=== PATIENT | male | born 1970 | race Caucasian/White ===

== ENCOUNTER 2017-05-10 16:28 | Observation (INO) ==
[2017-05-10 18:15] LABS: Basophils # 0.1 K/mcL (0.0-0.2); Basophils % 0.5 %; Eosinophils # 0.2 K/mcL (0.0-0.6); Eosinophils % 2.3 %; Hematocrit 50.7 % (37.5-50.1); Hemoglobin 17.3 g/dL (12.9-16.9); Immature Granulocytes % 0.2 % (0-4); Lymphocytes # 2.1 K/mcL (0.6-4.6); Mean Corpuscular HGB Conc 34.1 g/dL (31.6-35.5); Mean Corpuscular Hemoglobin 28.7 pg (28.0-33.3); Mean Corpuscular Volume 84.2 fL (83.0-100.0); Mean Platelet Volume 9.3 fL (9.4-12.4); Monocytes # 0.9 K/mcL (0.0-1.3); Neutrophils # 6.3 K/mcL (1.6-8.9); Platelet Count 256 K/mcL (140-400); Red Blood Count 6.02 M/mcL (4.19-5.50); Red Cell Distribution Width 13.4 % (11.5-14.5)
[2017-05-10 18:21] LABS: Bilirubin,Urine Negative (Negative); Blood,Urine Trace (Negative); Clarity,Urine Clear (Clear); Color,Urine Dark Yellow (Yellow); Glucose,Urine (UA) Normal (Normal); Ketones,Urine Negative (Negative); Leukocyte Esterase,Urine Negative (Negative); Nitrite,Urine Negative (Negative); PH,Urine 5.5 pH Units (5.0-8.0); Protein,Urine Negative (Neg-Trace); Specific Gravity,Urine > 1.030 (1.010-1.025); Urobilinogen,Urine Normal (Normal)
[2017-05-10 18:24] LABS: Bacteria,Urine None Seen per hpf (None-Few); Hyaline Casts,Urine None Seen per lpf (None-Few); Squamous Epithelial Cell,Urine Few per lpf (None-Few); WBC,Urine 0-3 per hpf (0-3)
[2017-05-10 19:01] LABS: Alanine Aminotransferase 37 Units/L (7-52); Albumin/Globulin Ratio 1.7 (1.1-2.2); Alkaline Phosphatase 99 Units/L (34-104); Amylase 26 Units/L (29-103); Aspartate Amino Transferase 21 Units/L (13-39); BUN/Creatinine Ratio 13 (6-26); Bilirubin,Direct 0.1 mg/dL (0.0-0.2); Bilirubin,Indirect 0.5 mg/dL (0.0-1.2); Bilirubin,Total 0.6 mg/dL (0.3-1.0); Blood Urea Nitrogen 13 mg/dL (6-20); Calcium 10.1 mg/dL (8.6-10.3); Carbon Dioxide 23 mEq/L (23-29); Chloride 103 mEq/L (98-107); Glucose 117 mg/dL (70-105); Lipase 17 Units/L (11-82); Osmolality,Calculated 281 (280-300); Potassium 4.1 mEq/L (3.5-5.1); Sodium 135 mEq/L (136-145); eGFR For African Americans > 60 (> 60); eGFR For Non-African Americans > 60 (> 60)
[2017-05-10] MEDS ORDERED: *HR* HYDROmorphone (PF) 1 MG/ML SYRINGE IVP ONE ×2 (21:42→22:51)
[2017-05-10] MEDS ORDERED: Ondansetron 4 MG/2 ML VIAL IVP ONE (21:42)
--- NOTE | 2017-05-10 22:16 | Emergency Department Note ---
Disposition Clinical Impression: Ileitis, terminal Qualifiers: Digestive disease complication type: unspecified complication Qualified Code(s) : K50.019 - Crohn's disease of small intestine with unspecified complications Disposition: Admitted As Inpatient Referrals: NONE,PCP [Primary Care Provider] - Elijah Simmons MD [Family Provider] - Forms: ED Satisfaction Letter, Work/School Release General Adult HPI - General Chief complaint: ED Abdominal Pain Stated complaint: left lower abd Time Seen by Provider: 05/10/17 21:26 Source: patient, family Mode of arrival: ambulatory Limitations: no limitations Nursing Notes Reviewed: Yes Vital Signs Reviewed: Yes - History of Present Illness HPI Narrative: Patient is an otherwise healthy 46-year-old white male who presents to the emergency room today with 24 hour history of gradually worsening right lower quadrant abdominal pain. Patient has had associated nausea but no vomiting, no bowel changes or diarrhea, no preceding cough or URI symptoms. Patient denies any urinary symptoms or flank pain. No ill contacts. Patient has had no prior abdominal surgeries and no history of any bowel disease or disorders. Pain Scale: 10 - Related Data Allergies Allergy/AdvReac Type Severity Reaction Status Date / Time No Known Allergies Allergy Unverified 05/10/17 16:29 All systems ED: reviewed and negative except as stated. Review of Systems: As Per HPI Past Medical History - Past Medical History Medical history: Reports: no medical history - Social History Smoking Status: Current every day smoker Alcohol use: Reports: none Drug use: Reports: none Physical Exam - General Limitations: no limitations General appearance: alert, in no apparent distress - Head Head exam: atraumatic, normocephalic - Eye Eye exam: Present: normal appearance, PERRL, EOMI - ENT ENT exam: normal exam, normal oropharynx, mucous membranes moist - Neck Neck exam: Present: normal inspection, full ROM - Chest Chest inspection: Present: normal inspection, symmetric chest wall rise - Respiratory Respiratory exam: Present: normal lung sounds bilaterally. Absent: respiratory distress, wheezes - Cardiovascular Cardiovascular exam: Present: regular rate, normal rhythm, normal heart sounds - Abdominal Exam Abdominal exam: Present: soft, tenderness, normal bowel sounds, other (Moderate tenderness to palpation in the right lower quadrant.). Absent: distention, guarding, rebound Abdominal tenderness: Present: RLQ - Male exam: Present: normal inspection - Extremities Exam Extremities exam: Present: normal inspection. Absent: pedal edema, calf tenderness - Back Exam Back exam: Present: normal inspection. Absent: tenderness, CVA tenderness (R), CVA tenderness (L), paraspinal tenderness, vertebral tenderness - Neurological Exam Neurological exam: Present: alert, oriented X3, CN II-XII intact, reflexes normal. Absent: motor sensory deficit - Psychiatric Psychiatric exam: Present: normal affect, normal mood - Skin Skin exam: Present: warm, dry, intact, normal color Course Course Narrative: Patient's labs were obtained in triage and show leukocytosis with left shift otherwise within normal limits. Moderate blood on urinalysis. Patient will be sent for CT for further evaluation of possible appendicitis versus ureterolithiasis. Patient's hemodynamically stable and was provided IV fluids pain meds and antiemetics prior to being moved CT. - Reevaluation(s) Reevaluation #1: Reevaluated following pain medicine administration having no relief of discomfort. Still with water tenderness in the right lower quadrant with guarding. We will re-dose pain medicines. Vital Signs Temperature 97.9 F 05/10/17 17:46 Pulse Rate 108 05/10/17 17:46 Respiratory Rate 18 05/10/17 17:46 Blood Pressure 135/86 05/10/17 17:46 O2 Sat by Pulse Oximetry 97 05/10/17 17:46 Temperature 97.9 F 05/10/17 17:46 Pulse Rate 77 05/10/17 23:17 Respiratory Rate 16 05/10/17 23:17 Blood Pressure 120/63 05/10/17 23:17 O2 Sat by Pulse Oximetry 95 05/10/17 23:17 Oxygen Delivery Oxygen Delivery Room Air Medical Decision Making - [facility] Narrative Medical decision making narrative: I discussed the CT findings and laboratory evaluation as well as the clinical exam with Dr. Benitez his polysilicon preparation worker for surgery. He does not feel that the CT findings indicate any surgical issue or possible early appendicitis and that the patient should be just treated for ileitis. He recommended ongoing IV pain control and antibiotics. Case was discussed with hospitalist, Dr. Smith at 12: 20 AM who accepted the patient for admission and ongoing medical management. - Lab Data Lab results reviewed: Yes I reviewed the patient's lab results. Result diagrams: 05/10/17 18:00 05/10/17 18:00 Lab Results 05/10/17 05/10/1718 Range/Units 17:53 18:00 18:00 WBC 9.6 (4.3-11.1) K/mcL RBC 6.02 H (4.19-5.50) M/mcL Hgb 17.3 H (12.9-16.9) g/dL Hct 50.7 H (37.5-50.1) % MCV 84.2 (83.0-100.0) fL MCH 28.7 (28.0-33.3) pg MCHC 34.1 (31.6-35.5) g/dL RDW 13.4 (11.5-14.5) % Plt Count 256 (140-400) K/mcL MPV 9.3 L (9.4-12.4) fL Immature Gran % 0.2 (0-4) % Seg Neutrophils % 66.0 % Lymphocytes % 22.0 % Monocytes % 9.0 % Eosinophils % 2.3 % Basophils % 0.5 % Neutrophils # 6.3 (1.6-8.9) K/mcL Lymphocytes # 2.1 (0.6-4.6) K/mcL Monocytes # 0.9 (0.0-1.3) K/mcL Eosinophils # 0.2 (0.0-0.6) K/mcL Basophils # 0.1 (0.0-0.2) K/mcL Sodium 135 L (136-145) mEq/L Potassium 4.1 (3.5-5.1) mEq/L Chloride 103 (98-107) mEq/L Carbon Dioxide 23 (23-29) mEq/L BUN 13 (6-20) mg/dL Creatinine 1.04 (0.70-1.30) mg/dL Est GFR ( Amer) > 60 (> 60) Est GFR (Non-Af Amer) > 60 (> 60) BUN/Creatinine Ratio 13 (6-26) Glucose 117 H (70-105) mg/dL Calculated Osmolality 281 (280-300) Calcium 10.1 (8.6-10.3) mg/dL Total Bilirubin 0.6 (0.3-1.0) mg/dL Direct Bilirubin 0.1 (0.0-0.2) mg/dL Indirect Bilirubin 0.5 (0.0-1.2) mg/dL AST 21 (13-39) Units/L ALT 37 (7-52) Units/L Alkaline Phosphatase 99 (34-104) Units/L Serum Total Protein 8.0 (6.4-8.9) g/dL Albumin 5.0 (3.5-5.7) g/dL Globulin 3.0 (2.4-3.5) g/dL Albumin/Globulin Ratio 1.7 (1.1-2.2) Amylase 26 L (29-103) Units/L Lipase 17 (11-82) Units/L Urine Color Dark Yellow (Yellow) Urine Clarity Clear (Clear) Urine pH 5.5 (5.0-8.0) pH Units Ur Specific [place] > 1.030 H (1.010-1.025) Urine Protein Negative (Neg-Trace) mg/dL Urine Glucose (UA) Normal (Normal) mg/dL Urine Ketones Negative (Negative) mg/dL Urine Blood Trace H (Negative) Urine Nitrite Negative (Negative) Urine Bilirubin Negative (Negative) Urine Urobilinogen Normal (Normal) mg/dL Ur Leukocyte Esterase Negative (Negative) Urine Microscopic RBC 5-15 H (0-3) per hpf Urine Microscopic WBC 0-3 (0-3) per hpf Ur Squamous Epith Cells Few (None-Few) per lpf Urine Bacteria None Seen (None-Few) per hpf Hyaline Casts None Seen (None-Few) per lpf Ur Culture Indicated? NO (NO) - Radiology Data Radiology results reviewed: Yes I reviewed the patient's radiology results. Abdomen/Pelvis CT 05/10/17 21:43 IMPRESSION: Mild edematous change in the root of small bowel mesenteries. No fluid collection or other significant inflammatory change. Submucosal fat in the distal and terminal ileum, signifying inflammatory bowel disease. D/ / Justin Sanders MD / Justin Sanders MD Interpreting Provider: Justin Sanders MD
[2017-05-10] MEDS ORDERED: MetroNIDAZOLE 500 MG/100 ML 500 MG/100 ML BAG IVPB ONE (23:06)
[2017-05-10] MEDS ORDERED: cefTRIAXone 1,000 MG in Water for inj. (sterile) 20 ML 10 ML IVP ONE (23:06)
[2017-05-11] MEDS ORDERED: Ondansetron 4 MG/2 ML VIAL IVP PRN (01:22)
[2017-05-11] MEDS ORDERED: *HR* OxyCODONE Immed Rel 5 MG TABLET PO PRN (01:22)
[2017-05-11] MEDS ORDERED: Naloxone 0.4 MG/ML INJ IVP PRN (01:22)
[2017-05-11] MEDS ORDERED: Acetaminophen 325 MG TABLET PO PRN (01:22)
[2017-05-11] MEDS ORDERED: 0.9 % Sodium Chloride 1,000 ML IVC SCH (01:30)
--- NOTE | 2017-05-11 02:17 | Internal Med History&Physical ---
Date of Encounter: 05/11/17 Time of Encounter: 01:00 Assessment and Plan (1) DVT prophylaxis Current visit: Yes Status: Acute Patient is young and ambulating well, no anticoagulation is needed (2) Ileitis, terminal Current visit: Yes Status: Acute Patient has right lower quadrant pain. CT abdomen shows inflammation in ileum. Consider acute ileitis. - We will continue antibiotic with Cipro and Flagyl - IV fluid, IV pain medication. - Place patient on clear liquid diet, advance as tolerated. - Surgical consult was called by ER, consider no indication for surgery at this point. Qualifiers: Digestive disease complication type: without complication Qualified Code(s) : K50.00 - Crohn's disease of small intestine without complications Internal Medicine - H&P: HPI Chief complaint: Abdominal pain Admitted From: Home Plans for Post Hospital Care: Home History of present illness: Mr. Brown is a 46 year old male with no known medical history presented to ER for right lower quadrant abdominal pain since last night. Patient said pain is located on right lower side, sharp, 10 out of 10. Patient has nausea no vomiting. Patient has subjective fever. Patient denies diarrhea but said that he has diarrhea earlier on and off for a couple of months. Patient's last bowel movement was on Tuesday. Patient feels having a lot of gas and can pass gas. In the emergency room, CT abdominal shows inflammation in the ileum, no acute appendicitis. Patient was admitted for colitis. Past Med Surg Social Fam HX - Past Medical History Medical history: no medical history - Social History Smoking Status: Current every day smoker Alcohol use: none Drug use: none - Family History Mother Hx Family Cancer: No (No family history of colon cancer) Father Hx Family Cancer: No (No family history of colon cancer) Internal Medicine - H&P: Meds 3 Allergy/AdvReac Type Severity Reaction Status Date / Time No Known Allergies Allergy Unverified 05/10/17 16:29 All Systems PM: A 10-system review of systems was performed and is negative for pertinent findings except as documented above in the HPI. - Constitutional Vitals: Temp Pulse Resp BP Pulse Ox 97.9 F 77 16 120/72 95 05/10/17 17:46 05/10/17 23:17 05/11/17 01:30 05/11/17 01:30 05/10/17 23:17 General appearance: Present: A&O X 3, no acute distress, answers questions appropriately - Head Head exam: Present: atraumatic, normocephalic - Eye Eye exam: Present: PERRL, conjuntiva pink, sclera anicteric Pupils: Present: PERRL - Neck Neck exam general surgery: Present: supple, trachea midline. Absent: lymphadenopathy - Respiratory Respiratory exam: Present: CTAB. Absent: accessory muscle use, rales, rhonchi, wheezes - Cardiovascular Cardiovascular exam: Present: RRR, +S1, +S2. Absent: diastolic murmur, gallop, rubs, systolic murmur - GI/Abdominal GI/Abdominal exam: Present: normal bowel sounds, soft, tenderness (Tenderness on right lower quadrant, with guarding), no peritoneal signs. Absent: distended - Extremities Exam Extremities exam: Present: warm, radial pulses palpable and symmetrical. Absent : calf tenderness, cyanotic, pedal edema - Neurological Exam Neurological exam: Present: CN II-XII intact, oriented X3, no focal deficits. Absent: pronater drift, facial droop, speech deficit - Skin Skin exam: Present: dry, intact Internal Med - H&P Results - Labs CBC & Chem 7: 05/10/17 18:00 05/10/17 18:00
[2017-05-11 06:19] LABS: Basophils # 0.1 K/mcL (0.0-0.2); Basophils % 0.8 %; Eosinophils # 0.3 K/mcL (0.0-0.6); Hematocrit 47.6 % (37.5-50.1); Hemoglobin 15.8 g/dL (12.9-16.9); Immature Granulocytes % 0.3 % (0-4); Lymphocytes # 2.3 K/mcL (0.6-4.6); Lymphocytes % 35.7 %; Mean Corpuscular HGB Conc 33.2 g/dL (31.6-35.5); Mean Corpuscular Hemoglobin 28.5 pg (28.0-33.3); Mean Corpuscular Volume 85.9 fL (83.0-100.0); Mean Platelet Volume 9.6 fL (9.4-12.4); Monocytes % 14.9 %; Neutrophils # 2.9 K/mcL (1.6-8.9); Platelet Count 237 K/mcL (140-400); Red Blood Count 5.54 M/mcL (4.19-5.50); Red Cell Distribution Width 13.3 % (11.5-14.5); Segmented Neutrophils % 44.3 %
[2017-05-11 07:02] LABS: BUN/Creatinine Ratio 13 (6-26); Blood Urea Nitrogen 13 mg/dL (6-20); Calcium 9.2 mg/dL (8.6-10.3); Carbon Dioxide 24 mEq/L (23-29); Chloride 106 mEq/L (98-107); Glucose 88 mg/dL (70-105); Magnesium 2.1 mg/dL (1.6-2.6); Osmolality,Calculated 286 (280-300); Sodium 138 mEq/L (136-145); eGFR For African Americans > 60 (> 60); eGFR For Non-African Americans > 60 (> 60)
[2017-05-11] MEDS ORDERED: MetroNIDAZOLE 500 MG/100 ML 500 MG/100 ML BAG IVPB SCH (08:00)
[2017-05-11] MEDS: *HR* HYDROmorphone (PF) 1 MG/ML SYRINGE IVP PRN ×2 (08:26→12:26)
--- NOTE | 2017-05-11 10:18 | General Surgery Consult Note ---
Date of Encounter: 05/11/17 Time of Encounter: 09:45 Assessment and Plan (1) Ileitis, terminal Current Visit: Yes Status: Acute Pt is currently asymptomatic and is requesting "a burger." He requests dispo and follow-up with GI as an outpatient. He would like to follow at [facility]. There is no acute surgical indication at this time. He has no evidence of acute appendicitis and his exam is benign. Ok to advance diet as tolerated and dispo per primary team. Agree with po ATBX at d/c and GI follow-up. Thank you for allowing us to participate in Mr. Brown's care. Qualifiers: Digestive disease complication type: without complication Qualified Code(s) : K50.00 - Crohn's disease of small intestine without complications History of Present Illness Consult date: 05/10/17 (Dr. Brady Benitez) Reason for consult: abdominal pain Requesting physician: Abner Smith History of present illness: Ivan merchant a pleasant 46-year-old male who denies a past medical history, medication history, surgical history, illicit substance abuse history, he does confirm a smoking history of half to one pack per day and occasional alcohol use. He presented to the emergency department on 05/10/2017 for complaints of gradual increase in right lower quadrant abdominal discomfort had started approximately 24 to 48 hours previously. He had a CT of the abdomen and pelvis with IV and no oral contrast which was consistent with possible inflammatory bowel disease in the terminal ileum notably. Surgery has been asked to see this patient for recommendations of possible inflammatory changes vs acute appendicitis. He denies any associated symptoms, aggravating or alleviating factors. He reported that the discomfort felt dull and continuous. Presently he reports the discomfort has dissapated. He denies fevers, chills, headache, dizziness, chest pain, shortness of breath, constipation, diarrhea, changes in bowel habits , black, bloody, or tarry stool. He denies any history of EGD or colonoscopy stating "I just don't go to the doctor." He denies any family history of colon cancers. He reports an appetite and asks for "a burger." Past Med Surg Social Fam HX - Past Medical History Source: patient Medical history: no medical history - Past Surgical History Surgical History: no surgical history - Social History Smoking Status: Current every day smoker Packs per day: 0.5 Smokeless Tobacco Status: No Alcohol use: none Drug use: none Occupational status: employed Current living situation: Home - Independent Activity Level: Independent ambulation Recent Out of Country Travel Within the Last 8 Weeks: No Exposure or Possible Exposure to Illness During Travel: No - Family History Mother Hx Family Cancer: No (No family history of colon cancer) Father Hx Family Cancer: No (No family history of colon cancer) Medications and Allergies No Known Home Drugs 05/11/17 [History] 3 Allergy/AdvReac Type Severity Reaction Status Date / Time No Known Allergies Allergy Unverified 05/10/17 16:29 Review of Systems All systems PM: reviewed and no additional remarkable complaints except as stated All systems PM: A 10-system review of systems was performed and is negative for pertinent findings except as documented above in the HPI. General Surgery Exam Initial Vital Signs Temp Pulse Resp BP Pulse Ox 97.9 F 108 18 135/86 97 05/10/17 17:46 05/10/17 17:46 05/10/17 17:46 05/10/17 17:46 05/10/17 17:46 - General physical appearance well developed, well nourished, no distress - Eyes negative: icteric - Neck trachea midline, no venous distension - Respiratory normal expansion, normal respiratory effort, clear to auscultation - Cardiovascular Cardiovascular exam: Present: RRR, 15, 16 - Abdomen Abdomen general surgery: Present: bowel sounds present, soft, non tender - Integumentary Integumentary general surgery: Present: warm and dry, no abnormal pigmentation - Neurologic Present: CN 2-12 grossly intact, normal coordination, normal sensation - Musculoskeletal Present: normal gait, normal posture - Psychiatric Psychiatric general surgery: Present: A&Ox3, appropriate, oriented to person, oriented to place, oriented to time, speech is normal, memory intact Exam Initial Vital Signs Temp Pulse Resp BP Pulse Ox 97.9 F 108 18 135/86 97 05/10/17 17:46 05/10/17 17:46 05/10/17 17:46 05/10/17 17:46 05/10/17 17:46 Results - Labs 05/11/17 05:16 05/11/17 05:16 Abnormal lab results RBC 5.54 M/mcL (4.19-5.50) H 05/11/17 05:16 Amylase 26 Units/L (29-103) L 05/10/17 18:00 Ur Specific [place] > 1.030 (1.010-1.025) H 05/10/17 17:53 Urine Blood Trace (Negative) H 05/10/17 17:53 Urine Microscopic RBC 5-15 per hpf (0-3) H 05/10/17 17:53 Diabetes panel 05/11/17 Range/Units 05:16 Sodium 138 (136-145) mEq/L Potassium 4.0 (3.5-5.1) mEq/L Chloride 106 (98-107) mEq/L Carbon Dioxide 24 (23-29) mEq/L BUN 13 (6-20) mg/dL Creatinine 1.01 (0.70-1.30) mg/dL Glucose 88 (70-105) mg/dL Calcium 9.2 (8.6-10.3) mg/dL Calcium panel 05/11/17 Range/Units 05:16 Calcium 9.2 (8.6-10.3) mg/dL Pituitary panel 05/11/17 Range/Units 05:16 Sodium 138 (136-145) mEq/L Potassium 4.0 (3.5-5.1) mEq/L Chloride 106 (98-107) mEq/L Carbon Dioxide 24 (23-29) mEq/L BUN 13 (6-20) mg/dL Creatinine 1.01 (0.70-1.30) mg/dL Glucose 88 (70-105) mg/dL Calcium 9.2 (8.6-10.3) mg/dL Adrenal panel 05/11/17 Range/Units 05:16 Sodium 138 (136-145) mEq/L Potassium 4.0 (3.5-5.1) mEq/L Chloride 106 (98-107) mEq/L Carbon Dioxide 24 (23-29) mEq/L BUN 13 (6-20) mg/dL Creatinine 1.01 (0.70-1.30) mg/dL Glucose 88 (70-105) mg/dL Calcium 9.2 (8.6-10.3) mg/dL All other labs normal. - Imaging CT scan - abdomen: report reviewed CT scan - pelvis: report reviewed Additional studies: Abdomen/Pelvis CT 05/10/17 21:43 IMPRESSION: Mild edematous change in the root of small bowel mesenteries. No fluid collection or other significant inflammatory change. Submucosal fat in the distal and terminal ileum, signifying inflammatory bowel disease. D/ / Justin Sanders MD / Justin Sanders MD Interpreting Provider: Justin Sanders MD Consult Discharge Plan - Plan Referrals: NONE,PCP [Primary Care Provider] - Elijah Simmons MD [Family Provider] - [facility] [Provider Group]
[2017-05-11 10:44] VITALS: BP 141/68
--- NOTE | 2017-05-11 13:09 | Discharge Summary ---
<Kaleb Smith - Last Filed: 05/11/17 13:14> Date of Encounter: 05/11/17 Time of Encounter: 13:07 - Discharge Diagnosis (1) Ileitis, terminal Priority: Primary Status: Acute Qualifiers: Digestive disease complication type: without complication Qualified Code(s) : K50.00 - Crohn's disease of small intestine without complications (2) DVT prophylaxis Priority: Secondary Status: Acute - Discharge Medications Prescriptions: Ondansetron ODT [Zofran ODT] 4 mg SL Q6HR #30 tab.rapdis OxyCODONE Immed Rel [Roxicodone 5 MG] 5 mg PO Q6HR PRN #20 tablet PRN Reason: Moderate Pain (4-6) Ciprofloxacin [Cipro] 500 mg PO BID #20 tablet metroNIDAZOLE [Flagyl] 500 mg PO TID #30 tablet Home Medications: Ciprofloxacin [Cipro] 500 mg PO BID #20 tablet 05/11/17 [Rx] Ondansetron ODT [Zofran ODT] 4 mg SL Q6HR #30 tab.rapdis 05/11/17 [Rx] OxyCODONE Immed Rel [Roxicodone 5 MG] 5 mg PO Q6HR PRN #20 tablet 05/11/17 [Rx] metroNIDAZOLE [Flagyl] 500 mg PO TID #30 tablet 05/11/17 [Rx] Allergies/Adverse Reactions: 3 Allergy/AdvReac Type Severity Reaction Status Date / Time No Known Allergies Allergy Unverified 05/10/17 16:29 Date of admission: 05/11/17 00:58 Primary care physician: PCP NONE Consults: 05/11/17 02:26 Consult to Surgery [CONS] Routine Consulting Provider: [facility] Reason for Consult: RLQ pain, Dr Benitez was consulted by ER Call Completed: Yes Discharging clinician: Kaleb Smith Anticipated date of discharge: 05/11/17 - Patient Status Disposition: Home, Self-Care Condition: Good Functional capacity at discharge: independent ambulation Overall status at discharge: patient is progressing back to baseline - Discharge Instructions Instructions: Crohn Disease (DC) Follow Up With: [facility] [Provider Group] (Web Requested entered and office will call patient at home with date and time of appt. Thank you) NONE,PCP [Primary Care Provider] - (Patient states he would prefer to find his own PCP. Thank you) Additional Instructions: Please follow up with your PCP and Gastroenterology within 1-2 weeks of discharge - Diet and Activity Activity: increase activity as tolerated Diet: regular diet Hospital course: Mr. Brown is a 46 year old male who presented with right lower quadrant abdominal pain that started earlier the morning of admission. He has no significant medical history and has never had this happen to him before. He did state that he had been trying to lose weight on purpose and has lost about 20 pounds in the last several months. He also reports cyclical diarrhea with constipation during the last several months. He denied any nausea, vomiting, diarrhea at admission. CT scan of the abdomen did show inflammation at the ileum suggesting possible inflammatory bowel disease, but no signs of appendicitis. He was started on Ciprofloxacin and metronidazole. Surgery was consulted and did not feel like he was a surgical candidate at this time. Patient did have his diet advanced from clears to regular and tolerated without any issues. He will be going home on 10 day course of oral antibiotics with both ciprofloxacin and metronidazole. He will also have symptom control with Zofran and oxycodone. He will follow closely with his primary care physician and gastroenterology for possible outpatient colonoscopy. - Time Spent with Patient Total time spent providing and/or coordinating discharge services: Greater than 30 minutes - Constitutional Vitals: Temp Pulse Resp BP Pulse Ox 97.7 F 72 16 141/68 96 05/11/17 10:43 05/11/17 10:43 05/11/17 10:43 05/11/17 10:43 05/11/17 10:43 General appearance: Present: cooperative, A&O X 3, no acute distress, answers questions appropriately - Head Head exam: Present: atraumatic, normocephalic - Eye Eye exam: Present: PERRL, conjuntiva pink, sclera anicteric - Neck Neck exam general surgery: Present: supple, trachea midline. Absent: lymphadenopathy - Respiratory Respiratory exam: Present: CTAB. Absent: accessory muscle use, rales, rhonchi, wheezes - Cardiovascular Cardiovascular exam: Present: RRR, +S1, +S2. Absent: diastolic murmur, gallop, rubs, systolic murmur - GI/Abdominal GI/Abdominal exam: Present: normal bowel sounds, soft, tenderness (RLQ with palpation ), no peritoneal signs. Absent: distended - Extremities Exam Extremities exam: Present: warm, radial pulses palpable and symmetrical. Absent : calf tenderness, cyanotic, pedal edema - Neurological Exam Neurological exam: Present: alert, oriented X3, no focal deficits. Absent: facial droop, speech deficit - Skin Skin exam: Present: dry, intact <Miguel Angel Ramirez - Last Filed: 05/11/17 14:55> Date of Encounter: 05/11/17 Date of admission: 05/11/17 00:58 Primary care physician: PCP NONE Consults: 05/11/17 02:26 Consult to Surgery [CONS] Routine Consulting Provider: [facility] Reason for Consult: RLQ pain, Dr Benitez was consulted by ER Call Completed: Yes Hospital course: Mr. Brown is a 46 year old male - Time Spent with Patient Total time spent providing and/or coordinating discharge services: - Constitutional Vitals: Temp Pulse Resp BP Pulse Ox 97.7 F 72 16 141/68 96 05/11/17 10:43 05/11/17 10:43 05/11/17 10:43 05/11/17 10:43 05/11/17 10:43 - Attending Attestation I [ersonally interviwed and examined this pt. I reviewed all labs and studies. i agree with the findings, assessment and plan of Dr. Smith, Internal Medicine Resident.. I also discussed the case with general surgery. Once his colitis is appropriately treated, he will need referral for colonoscopy to look for any evidence of inflammatory bowel disease. Gases with the patient and his in detail as well.
== END 2017-05-11 14:16 | disposition home or self-care (01) ==
LOC: EMEROO 16:28 → 3ANU 16:28
PROVIDERS: ADMIT Internal Medicine; ATTEND Internal Medicine